=== PATIENT | male | born 1950 ===

== ENCOUNTER → 2018-07-22 14:03 | Outpatient (BNVA) | payer MEDICARE, BC, SELFPAY | PROVIDERS: PCP Nurse Practitioner Family; Visit Provider Urology | DX: N40.1 Benign prostatic hyperplasia with lower urinary tract symptoms (principal); R39.198 Other difficulties with micturition; K40.20 Bilateral inguinal hernia, without obstruction or gangrene, not specified as recurrent; N18.6 End stage renal disease; Z12.5 Encounter for screening for malignant neoplasm of prostate | CPT/HCPCS: 99213 ==

== ENCOUNTER 2018-07-24 11:13 | Outpatient (CLI) | payer MEDICARE, BC, SELFPAY ==
[2018-07-25 10:24] LABS: PSA, Screening 1.2 ng/ml (0-4.5)
== END 2018-07-24 11:33 ==
PROVIDERS: PCP Nurse Practitioner Family; Visit Provider Urology
DX: N40.1 Benign prostatic hyperplasia with lower urinary tract symptoms (principal); Z12.5 Encounter for screening for malignant neoplasm of prostate; E03.9 Hypothyroidism, unspecified; E78.5 Hyperlipidemia, unspecified
CPT/HCPCS: 36415; 84153

== ENCOUNTER → 2018-08-11 09:22 | Outpatient (BNVA) | payer MEDICARE, BC, SELFPAY | PROVIDERS: PCP Nurse Practitioner Family; Referring Provider Nurse Practitioner Family; Visit Provider Surgery | DX: Z12.11 Encounter for screening for malignant neoplasm of colon (principal); K40.20 Bilateral inguinal hernia, without obstruction or gangrene, not specified as recurrent; I10 Essential (primary) hypertension | CPT/HCPCS: 99203; 99214 ==

== ENCOUNTER 2018-08-26 10:07 | Day surgery (SDC) | payer MEDICARE, BC, SELFPAY ==
[2018-08-26 10:17] VITALS: BP 115/72; PULSE 66; RESP 16; TEMP 36.9; O2SAT 95
[2018-08-26] MEDS: Lactated Ringers 1,000 ML 30 ML IV (10:59)
--- NOTE | 2018-08-26 13:13 | W.PM.DSUDISC ---
Discharge Plan Disposition Patient Disposition: HOME Condition: Good Discharge Details Reason For Visit: colorectal cancer screening Attending Provider: Kenney Powell Primary Care Provider: Micheline Degroot Home Meds and New Rx's Prescriptions: Continue levothyroxine 25 MCG tablet 25 mcg PO DAILY Qty: 90 RF: 3 amlodipine 5 mg tablet 5 mg PO DAILY Qty: 90 RF: 3 alfuzosin 10 mg tablet extended release 24 hr 10 mg PO DAILY Qty: 60 RF: 0 acyclovir 400 mg tablet 400 mg PO DAILY Qty: 90 RF: 3 Discharge Instructions Instructions: Colonoscopy (DC) Activity:: Activity as Tolerated Diet:: As Tolerated Discharge Orders Discharge Orders: Discharge Order (Routine); Ordered 08/26/18 Ordered By: Kenney Powell DS: Diagnosis Discharge Diagnosis (1) Encounter for colorectal cancer screening: Start date: 08/26/18 Start time: 13:14 Status: Acute Asessment and Plan: Colonoscopy performed
--- NOTE | 2018-08-26 13:17 | W.COLOREPORT ---
Date of service: 08/26/18 Time of Service: 13:17 Colonoscopy Report Date of procedure: 08/26/18 Pre-op diagnosis general: Colorectal cancer screening Post-op diagnosis procedure note: other (Rectal Polyp) Procedure: Colonoscopy with biopsy by cold forceps Surgeon: Kenney Powell Anesthesia proc note operative: MAC (Logan Ashton CRNA; ASA 2 Mallampati Class II) Estimated blood loss (mL): 1 Pathology: other (Rectal Polyp) Complications: None Disposition: same day Indications: 67-year-old gentleman who presented with complaints of inguinal hernia bilaterally. It is also been 10 years since his last screening colonoscopy for colorectal cancer. His last colonoscopy was unremarkable. He has been asymptomatic since then. And has no family history of colorectal cancer Prep: Miralax/Dulcolax (Prep quality good) Findings: In examining the colon from cecum to anus, one small less than 1 cm in greatest diameter polyp was identified in the rectum and removed by cold biopsy forceps. No other abnormalities were noted of the colon, anus, or anorectal junction. Procedure Description: The patient was seen in the day surgery waiting area. His identification was confirmed, and procedure check. He was then brought to the procedure room. Monitoring for telemetry, blood pressure, oxygen saturation, and end tidal CO2 monitoring were applied. An appropriate time out was performed to confirm, identification, allergies, medication, procedure, was performed. Sedation was titrated for affect by the CONTAINER SHOP WELDER; Once adequate sedation was achieved, I performed a inspection of the external perineum, and a digitial rectal examination. No significant external abnormalities were noted. On digital rectal examination, there was no blood, no masses, good rectal tone, and a normal prostate. I advanced the colonoscope from the anus to the cecum under direct visualization. The cecum was identified by the ileal-cecal valve, and the appendiceal orifice. The scope was then withdrawn in circumferential manner from the cecum to the rectum. No abnormalites were noted in the colon. The scope was then withdrawn into the rectum, and a small less than 1 cm in greatest diameter polyp was identified, and subsequently removed by cold biopsy forceps. The scope was then retroflexed, and no abnormalities were noted of the rectum or anorectal junction. The scope was then withdrawn, terminating the procedure. There were no complications during the procedure, and the patient tolerated the procedure well. He was returned to the day surgery recovery area in good condition. Plan: We will await biopsy results before making further recommendations.
--- NOTE | 2018-08-26 14:00 | BOWEL_PTH ---
PATIENT: Jeronimo Knight LOC: [facility] U#:[id number] AGE/SX: 67/M ROOM: RE08/26/[address]: Kenney Powell DO : 1950 BED: DIS: 08/26/2018 SPEC #: [id number] RECD: 08/26/18 17:39 STATUS: JERICA REQ #: [id number] CHAO: 08/26/18 14:[address]: Kenney Powell DEPT: Surgical Specimen RECD BY: Mey Soria ENTERED: 08/26/18 17:40 SP TYPE: Bowel OTHR DR: Micheline Degroot APRN Tissues: 1 - BIOPSY BOWEL Procedures: GROSS AND MICRO LEVEL 4 Comments: [id number]
[2018-08-26 14:50] VITALS: BP 113/71; PULSE 70; RESP 16; TEMP 36.4; O2SAT 99
== END 2018-08-26 15:21 | disposition home or self-care (01) ==
PROVIDERS: PCP Nurse Practitioner Family; Visit Provider Surgery
PROC: 0DJD8ZZ Inspection of Lower Intestinal Tract, Via Natural or Artificial Opening Endoscopic (ICD-10-PCS; CPT 45378; principal; 2018-08-26 12:15)
DX: Z12.11 Encounter for screening for malignant neoplasm of colon (principal); K62.1 Rectal polyp; I10 Essential (primary) hypertension
CPT/HCPCS: 45380; 88305; J2250; J3010

== ENCOUNTER 2018-10-17 08:07 | Day surgery (SDC) | payer MEDICARE, BC, SELFPAY ==
[2018-10-17] VITALS (8 sets, daily range): BP systolic 91–142; BP diastolic 62–92; PULSE 75–92; RESP 13–19; TEMP 36.2–36.9; O2SAT 91–100
[2018-10-17] MEDS: Lactated Ringers 1,000 ML 30 ML IV ×3 (08:47→13:13)
--- NOTE | 2018-10-17 10:22 | W.PM.HP.N ---
Date of service: 10/17/18 Time of Service: 10:23 Assessment and Plan (1) Bilateral inguinal hernia: Current visit: Yes Status: Acute Recommended extra peritoneal laparoscopic bilateral inguinal hernia repair. The procedure was reviewed with him, and the risks of the procedure were discussed. All his questions were answered to his satisfaction. Consent was obtained to proceed with extraperitoneal lap scopic bilateral inguinal hernia repair. History of Present Illness Chief Complaint: Bilateral Inguinal Hernia Narrative: 67-year-old gentleman who presented with complaints of inguinal hernia bilaterally. He has had these for a number of years, and recently these have started to become symptomatic, with groin discomfort after standing for long periods of time, or lifting, pulling, pushing heavy objects. It was recommended that he have these repaired, now that he was having symptoms. Review of Systems Review of Systems All systems reviewed & are unremarkable except as noted in HPI and below Constitutional Denies chills, Denies difficulty sleeping, Denies fatigue, Denies fever(s), Denies frequent falls, Denies headache(s), Denies malaise, Denies night sweats, Denies weakness and Denies weight loss Eyes Denies change in vision, Denies diplopia, Denies itchy eyes and Denies loss of vision ENT Denies headache(s), Denies neck pain and Denies odynophagia Cardiovascular Denies chest pain at rest, Denies chest pain with activity, Denies syncope, Denies irregular heart rhythm, Denies lightheadedness, Denies radiating jaw, neck or arm pain, Denies palpitations, Denies dyspnea and Denies orthopnea Respiratory Denies dyspnea Gastrointestinal Denies abdominal pain, Denies melena, Denies hematochezia, Denies change in bowel habits, Denies change in stool character, Denies constipation, Denies cramping, Denies early satiety, Denies heartburn, Denies diarrhea, Denies loose stools, Denies nausea, Denies odynophagia, Denies vomiting and Denies hematemesis Genitourinary Denies hematuria, Denies oliguria, Denies difficulty urinating, Denies nocturia, Denies urinary hesitancy, Denies urinary incontinence and Denies urinary urgency Musculoskeletal Denies back pain, Denies myalgias, Denies arthralgias, Denies joint swelling, Denies limited range of motion, Denies muscle weakness, Denies neck pain, Denies numbness, Denies stiffness and Denies tingling Integumentary/Breasts Denies bleeding lesions, Denies non-healing lesions, Denies rash, Denies skin swelling, Denies sores, Denies unusual bruising and Denies wounds Neurologic Denies syncope, Denies frequent falls, Denies headache(s), Denies loss of vision, Denies memory loss, Denies numbness, Denies tingling and Denies weakness Psychiatric Denies abnormal sleep pattern, Denies anxiety, Denies depression, Denies difficulty concentrating, Denies auditory hallucinations, Denies irritability, Denies anhedonia, Denies memory loss, Denies mood swings and Denies panic attacks Endocrine Denies fatigue and Denies palpitations Hematologic/Lymphatic Denies easy bleeding and Denies easy bruising Allergic/Immunologic Denies itchy eyes PFSH Medical History Cervical radiculopathy squamous cell carcinoma of the head and neck Hypothyroidism (Chronic) Hyperlipidemia (Chronic) Hearing loss (Chronic) HTN (hypertension) H/O colonoscopy (Resolved 08/26/18) Status post dissection of neck (Resolved) Colonoscopy - IV Sedation (06/01/08) Tonsillectomy Vasectomy Family History Mother Neoplasm Father Heart disease Sister Essential hypertension Social History Smoking/Tobacco Use Status: Former Tobacco Use alcohol intake: current substance use type: does not use Meds Home Medications Medication Instructions Recorded Confirmed Type levothyroxine 25 mcg PO DAILY #90 tab-cap 02/14/18 10/17/18 Rx amlodipine 5 mg tablet 5 mg PO DAILY #90 tab-cap 09/01/18 10/17/18 Rx acyclovir 400 mg PO DAILY PRN 10/14/18 10/17/18 History Allergies Allergy/AdvReac Type Severity Reaction Status Date / Time lisinopril AdvReac Severe Headache Verified 10/17/18 08:29 Exam Const General: cooperative, comfortable and well developed Nutritional Appearance: overweight Orientation: alert, awake and oriented x3 HENMT Head: normal to inspection, normocephalic and atraumatic Ears: hearing grossly normal bilaterally General nose exam: external nose normal Face and sinus: normal facial exam Mouth: oral mucosae normal Teeth and gingiva: dentition normal Eyes General: appearance normal, both eyes and all related structures Alignment and Position: alignment normal Periorbital: periorbital findings normal Eyelids: eyelids normal Conjunctivae: conjunctivae normal Sclera: sclerae normal Pupils: PERRL EOM: EOM intact bilaterally Neck Neck: normal visual inspection, full ROM, trachea midline and supple Lymphatic: no lymphadenopathy noted Chest Chest: normal inspection of the chest Resp Effort & Inspection: normal respiratory effort Auscultation: clear to auscultation bilaterally Cardio Jugular venous pressure: no JVD Rate: regular rate Rhythm: regular rhythm Heart Sounds: S1 normal and S2 normal Pulses: normal peripheral pulses GI Inspection: non-distended Palpation: soft, no guarding, hernia indirect inguinal bilaterally and nontender Rectal Exam: deferred General: No deferred Skin General skin exam: no rashes or lesions noted and turgor normal Hair: normal Neuro General: moves all extremities, no focal motor deficits and CN's II-XI intact bilaterally Cranial Nerves: CN's II-XI intact bilaterally and EOM intact bilaterally Cognition: normal cognition Speech: speech normal Extrem General: normal capillary refill and no clubbing, cyanosis or edema Psych Appearance: grossly normal Mental Status: mental status grossly normal Affect: normal affect Attitude: cooperative Thought Process: normal Thought Content: normal Insight: insight good Judgment: judgment good Results Last Vital Signs Temp 36.8 C 10/17/18 08:21 Pulse 75 10/17/18 08:21 Resp 18 10/17/18 08:21 BP 120/71 10/17/18 08:21 Pulse Ox 95 10/17/18 08:21
[2018-10-17] MEDS: Bupivacaine 0.25% Pres-Free 30 ML VIAL ×2 (11:20→12:03)
[2018-10-17] MEDS: Lidocaine 1% Pres-Free 5 ML VIAL (12:03)
[2018-10-17] MEDS: Normal Saline Flush 10 ML SYR IV (13:22)
[2018-10-17] MEDS: HYDROmorphone 2 MG/ML VIAL IVP ×2 (13:23→13:38)
--- NOTE | 2018-10-17 13:57 | PDOC.DSDIS_ITS ---
Discharge Plan Disposition Patient Disposition: HOME Condition: Good Discharge Details Reason For Visit: Bilateral inguinal hernias Attending Provider: Kenney Powell Primary Care Provider: Micheline Degroot Home Meds and New Rx's Prescriptions: New tramadol 50 mg Tablet 50 mg PO Q6H PRN PRNQty: 10 RF: 0 Continued levothyroxine 25 MCG tablet 25 mcg PO DAILY Qty: 90 RF: 3 amlodipine 5 mg tablet 5 mg PO DAILY Qty: 90 RF: 3 acyclovir 400 mg tablet 400 mg PO DAILY PRNRF: 0 Discharge Instructions Instructions: Laparoscopic Herniorrhaphy (DC) Additional Instructions: Dr. Kenney Powell Post-Operative Discharge Instructions 1. Because there will be medication in your system for the next 24 hours, you may feel a little sleepy. Your coordination will be affected. Therefore: * Do not drive or operate dangerous equipment for 24 hours. * Do not drink alcohol beverages for 24 hours (not even beer). * Plan to go home and rest for the day. Restrictions: * Do not lift, push, or drum puller 20lbs for 2 weeks. * No strenuous bending or twisting for 2weeks, if it hurts stop. * No baths, you can shower. Let warm soapy water run over wound, then pat wound dry. Activity: * The day of surgery spend most of the day resting in a comfortable bed or recliner. 2-3 times during the day get up and walk around the house. * The day after surgery, or after your discharge, walk at least 3 times a day and spend increasing amounts of time walking and sitting up. If you are tired rest, but keep moving as able. * Continue Incentive Spirometry at home if you were performing this therapy in the hospital. Diet: * Resume home diet as tolerated. * Start with a light diet, your appetite will improve with time. * Drink at least 4-6 glasses of water per day to keep hydrated. Wound Care: * Skin glue will stay in place until it wears off. * You may cover the wound with a dry sterile dressing to keep clothing from rubbing against the wound. Call for appointment . Continue all your regular medications unless directed otherwise. Call the office or the Hospital Audit Senior Associate , If you have: * Pain not controlled with pain medication. * Nausea and vomiting. * Temperature greater than 101 degrees Fahrenheit. * Drainage from your wound that soaks through your dressing. *No more than 4000 milligrams of Tylenol in 24 hours. Narcotic pain medication can be constipating, if you have not had a bowel movement within 3 days use a laxative, I recommend Milk of Magnesia (MOM) 1oz. every 6 hrs until you have a bowel movement. I understand the above instructions and have no questions. Signature of Patient or Responsible Adult Escort Date/Time Name of Responsible Adult Escort Signature of Nurse Date/Time Revised 02/26/11 Stand Alone Forms: Sherman Puri (DSU) Referrals: Ashley Whitman PA [PHYSICIANS LEASE EXAMINER] - 10/17/18 12:53 pm (Follow up after bilateral inguinal hernia repair laparoscopic) Activity:: see instructions Remove Dressings/Wound Care:: Do Not Remove Shower/Bathe:: 24 hours Diet:: As Tolerated Discharge Orders Discharge Orders: Discharge Order (Routine); Ordered 10/17/18 Ordered By: Kenney Powell Discharge Data Discharge Date/Time-TO BE ENTERED AT DEPARTURE: 10/17/18 15:17 Discharge Comment: DC'D HOME WITH VIA PRIVATE CAR STABLE. DS: Diagnosis Discharge Diagnosis (1) Bilateral inguinal hernia: Status: Acute Asessment and Plan: Total extraperitoneal Laparoscopic bilateral inguinal hernia repair: Operative Note DATE OF PROCEDURE: 10/17/18 PRE-OP DIAGNOSIS: Bilateral inguinal hernias POST-OP DIAGNOSIS: same PROCEDURE: Total extraperitoneal laparoscopic bilateral inguinal hernia repair SURGEON: Kenney Powell LEASE EXAMINER: Rick Brown ANESTHESIA: GETA (Lucy Hope CRNA; ASA 2 Mallampati class III), regional (1.3% Exparel for bilateral TAP blocks) and local (1% lidocaine with epinephrine and 0.25% Marcaine) ESTIMATED BLOOD LOSS: 5 PATHOLOGY: none sent COMPLICATIONS: None Patient was transported to: PACU Patient's condition: stable Implants: [employer] laparoscopic pro-direct mail manager right side lot number [id number] left side lot number [id number] Indications: 67-year-old gentleman who has had bilateral inguinal hernias for a number of years, which had until recently been asymptomatic. Over the last year he started to notice discomfort in his groins with standing for long periods of time, or or straining with heavy objects. He is also noted that the bulges of increased in size over time. It was recommended he undergo repair of his bilateral inguinal groin hernias, by laparoscopic repair. The procedure was reviewed with him, and the risks of the procedure were discussed. All his questions were answered to his satisfaction. Consent was obtained to proceed. Findings: In examining the posterior pubic space, the space of Retzius, bilateral direct inguinal hernias were reduced both were associated with a large cord lipomas which were reduced with a hernia sac. Mesh was subsequently placed. Space was then collapsed. Procedure Description: The patient was brought to the operating room. He was positioned supine, and all bony prominences were padded. He received Ancef 2 g preoperatively. An endotracheal tube was placed by anesthesia and sedation was titrated for effect. An appropriate timeout was taken reviewing the patient's identification, allergies, medications, procedure, and site. His arms were tucked at his sides. A White catheter was inserted after intubation, and sequential compression devices were applied prior to intubation. The abdomen was then prepped with ChloraPrep and block draped in standard sterile fashion for a laparoscopic total extraperitoneal inguinal hernia repair. I began by making a 2.5 cm linear transverse incision infraumbilically. Incision was carried down to the linea alba using sharp and blunt dissection. Once linea alba was identified, I made a linear transverse incision just lateral to the linea alba through the anterior rectus fascia to expose the underlying muscle. I then used an S retractor to sweep the muscle laterally exposing the posterior rectus sheath. Using my finger then a blunt dissector, I gently di lated the posterior tract down to the pubic symphysis. This was followed by dissection using a [employer] Spacemaker introducer dilator trocar. The introducer for the catheter was advanced to the pubic symphysis and slightly over it I then withdrew through the introducer, slid the dilator portion further into the tract, then under direct visualization the dilator balloon was insufflated until I could clearly see the pubic symphysis and Subhash's ligament exposed. The the dilator balloon was then removed, and the extraperitoneal space of Retzius was insufflated with CO2. The Spacemaker trocar balloon was then insufflated. I then placed two 5 mm trochars under direct visualization in the midline. The first was placed 2 cm superior to the pubic symphysis, and the second was placed between the 5 mm trocar in the Spacemaker trocar. I then proceeded by completing dissection of the Subhash's ligament on the left and right side from the midline. I then turned my attention to developing the potential space on the right. I dissected out the right potential space from the inferior epigastrics to the right anterior superior iliac spine. The vas deferens was then identified, and the cord structures associated were then dissected free circumferentially. There was clearly a indirect hernia sac which was subsequently reduced along with a large cord lipoma that was associated with the sac. There is no evidence of a femoral hernia on the right side. I then repeated my dissection on the left side from the left inferior epigastric vessels to the left anterior superior iliac spine was bluntly dissected to expose the cord structures. The left vas deferens was identified. Subsequently the vas deferens and associated cord structures were circumferentially dissected. Again there was a indirect hernia sac present on the left side which was subsequently reduced with a cord lipoma. I Proceeded to place a [employer] pro-direct mail manager laparoscopic mesh with the blue Line centered medially. The mesh was rolled and introduced through the Spacemaker trocar into the space of Retzius. The medial portion of the mesh was aligned at the center of the pubic symphysis or just lateral to the right of the center, the remainder of the mesh was stretched out to the anterior superior iliac spine. The mesh was then unrolled intra-abdominally from a superior to inferior to overlie the direct, indirect and femoral potential space spaces. It was pressed into place with good apposition to the tissue. I then repeated this procedure on the left. A [employer] pro-direct mail manager laparoscopic mesh was selected it was rolled up the blue line centered medially, and introduced in the abdomen through the Spacemaker trocar. The medial portion of the mesh was aligned just left of center at the pubic symphysis with the remainder of the mesh stretch to trail off towards the anterior superior iliac spine on the left. The mesh was then unrolled from inferior to superior to be sure to cover the direct femoral and indirect hernia spaces the mesh was then pressed into place with good apposition. I injected 30 cc of 0.25% Marcaine through the 5 mm trocar into the potential space. The abdomen was desufflated, and the 5 trochars removed under direct visualization I did hold the mesh inferior portion in place as the space closed down the Spacemaker trocar was removed. The anterior rectus fascia was closed using 0 Vicryl suture in a [id number] fashion. The umbilical incision was closed in layers with 3-0 Vicryl sutures approximating the subcutaneous tissue and 4-0 Vicryl closing the skin in subcuticular fashion. The remainder the trocar incisions were closed with the 4-0 Vicryl in subcuticular fashion. Skin affix and dry sterile dressings were applied. There were no complications during the case patient tolerated the procedure very well. He was extubated in the operating room, and brought to the postanesthesia care unit in good condition. All counts were reported as correct x2.
--- NOTE | 2018-10-17 15:26 | W.PM.OP ---
Date of service: 10/17/18 Time of Service: 11:00 Operative Note DATE OF PROCEDURE: 10/17/18 PRE-OP DIAGNOSIS: Bilateral inguinal hernias POST-OP DIAGNOSIS: same PROCEDURE: Total extraperitoneal laparoscopic bilateral inguinal hernia repair SURGEON: Kenney Powell CONSERVATOR ARTIFACTS: Rick Brown ANESTHESIA: GETA (Lucy Hope CRNA; ASA 2 Mallampati class III), regional (1.3% Exparel for bilateral TAP blocks) and local (1% lidocaine with epinephrine and 0.25% Marcaine) ESTIMATED BLOOD LOSS: 5 PATHOLOGY: none sent COMPLICATIONS: None Patient was transported to: PACU Patient's condition: stable Implants: Covidien laparoscopic pro-venereal disease control head right side lot number [id number] left side lot number [id number] Indications: 67-year-old gentleman who has had bilateral inguinal hernias for a number of years, which had until recently been asymptomatic. Over the last year he started to notice discomfort in his groins with standing for long periods of time, or or straining with heavy objects. He is also noted that the bulges of increased in size over time. It was recommended he undergo repair of his bilateral inguinal groin hernias, by laparoscopic repair. The procedure was reviewed with him, and the risks of the procedure were discussed. All his questions were answered to his satisfaction. Consent was obtained to proceed. Findings: In examining the posterior pubic space, the space of Retzius, bilateral direct inguinal hernias were reduced both were associated with a large cord lipomas which were reduced with a hernia sac. Mesh was subsequently placed. Space was then collapsed. Procedure Description: The patient was brought to the operating room. He was positioned supine, and all bony prominences were padded. He received Ancef 2 g preoperatively. An endotracheal tube was placed by anesthesia and sedation was titrated for effect. An appropriate timeout was taken reviewing the patient's identification, allergies, medications, procedure, and site. His arms were tucked at his sides. A White catheter was inserted after intubation, and sequential compression devices were applied prior to intubation. The abdomen was then prepped with ChloraPrep and block draped in standard sterile fashion for a laparoscopic total extraperitoneal inguinal hernia repair. I began by making a 2.5 cm linear transverse incision infraumbilically. Incision was carried down to the linea alba using sharp and blunt dissection. Once linea alba was identified, I made a linear transverse incision just lateral to the linea alba through the anterior rectus fascia to expose the underlying muscle. I then used an S retractor to sweep the muscle laterally exposing the posterior rectus sheath. Using my finger then a blunt dissector, I gently dilated the posterior tract down to the pubic symphysis. This was followed by dissection using a [employer] Spacemaker introducer dilator trocar. The introducer for the catheter was advanced to the pubic symphysis and slightly over it I then withdrew through the introducer, slid the dilator portion further into the tract, then under direct visualization the dilator balloon was insufflated until I could clearly see the pubic symphysis and Subhash's ligament exposed. The the dilator balloon was then removed, and the extraperitoneal space of Retzius was insufflated with CO2. The Spacemaker trocar balloon was then insufflated. I then placed two 5 mm trochars under direct visualization in the midline. The first was placed 2 cm superior to the pubic symphysis, and the second was placed between the 5 mm trocar in the Spacemaker trocar. I then proceeded by completing dissection of the Subhash's ligament on the left and right side from the midline. I then turned my attention to developing the potential space on the right. I dissected out the right potential space from the inferior epigastrics to the right anterior superior iliac spine. The vas deferens was then identified, and the cord structures associated were then dissected free circumferentially. There was clearly a indirect hernia sac which was subsequently reduced along with a large cord lipoma that was associated with the sac. There is no evidence of a femoral hernia on the right side. I then repeated my dissection on the left side from the left inferior epigastric vessels to the left anterior superior iliac spine was bluntly dissected to expose the cord structures. The left vas deferens was identified. Subsequently the vas deferens and associated cord structures were circumferentially dissected. Again there was a indirect hernia sac present on the left side which was subsequently reduced with a cord lipoma. I Proceeded to place a Covidien pro-venereal disease control head laparoscopic mesh with the blue Line centered medially. The mesh was rolled and introduced through the Spacemaker trocar into the space of Retzius. The medial portion of the mesh was aligned at the center of the pubic symphysis or just lateral to the right of the center, the remainder of the mesh was stretched out to the anterior superior iliac spine. The mesh was then unrolled intra-abdominally from a superior to inferior to overlie the direct, indirect and femoral potential space spaces. It was pressed into place with good apposition to the tissue. I then repeated this procedure on the left. A Covidien pro-venereal disease control head laparoscopic mesh was selected it was rolled up the blue line centered medially, and introduced in the abdomen through the Spacemaker trocar. The medial portion of the mesh was aligned just left of center at the pubic symphysis with the remainder of the mesh stretch to trail off towards the anterior superior iliac spine on the left. The mesh was then unrolled from inferior to superior to be sure to cover the direct femoral and indirect hernia spaces the mesh was then pressed into place with good apposition. I injected 30 cc of 0.25% Marcaine through the 5 mm trocar into the potential space. The abdomen was desufflated, and the 5 trochars removed under direct visualization I did hold the mesh inferior portion in place as the space closed down the Spacemaker trocar was removed. The anterior rectus fascia was closed using 0 Vicryl suture in a [id number] fashion. The umbilical incision was closed in layers with 3-0 Vicryl sutures approximating the subcutaneous tissue and 4-0 Vicryl closing the skin in subcuticular fashion. The remainder the trocar incisions were closed with the 4-0 Vicryl in subcuticular fashion. Skin affix and dry sterile dressings were applied. There were no complications during the case patient tolerated the procedure very well. He was extubated in the operating room, and brought to the postanesthesia care unit in good condition. All counts were reported as correct x2.
--- NOTE | 2018-10-17 15:34 | ROE_ITS ---
Date of service: 10/17/18 Time of Service: 11:00 Operative Note DATE OF PROCEDURE: 10/17/18 PRE-OP DIAGNOSIS: Bilateral inguinal hernias POST-OP DIAGNOSIS: same PROCEDURE: Total extraperitoneal laparoscopic bilateral inguinal hernia repair SURGEON: Kenney Powell MACHINE FARMWORKER: Rick Brown ANESTHESIA: GETA (Lucy Hope CRNA; ASA 2 Mallampati class III), regional (1.3% Exparel for bilateral TAP blocks) and local (1% lidocaine with epinephrine and 0.25% Marcaine) ESTIMATED BLOOD LOSS: 5 PATHOLOGY: none sent COMPLICATIONS: None Patient was transported to: PACU Patient's condition: stable Implants: Covidien laparoscopic pro-environmental services director right side lot number [id number] left side lot number [id number] Indications: 67-year-old gentleman who has had bilateral inguinal hernias for a number of years, which had until recently been asymptomatic. Over the last year he started to notice discomfort in his groins with standing for long periods of time, or or straining with heavy objects. He is also noted that the bulges of increased in size over time. It was recommended he undergo repair of his bilateral inguinal groin hernias, by laparoscopic repair. The procedure was reviewed with him, and the risks of the procedure were discussed. All his questions were answered to his satisfaction. Consent was obtained to proceed. Findings: In examining the posterior pubic space, the space of Retzius, bilateral direct inguinal hernias were reduced both were associated with a large cord lipomas which were reduced with a hernia sac. Mesh was subsequently placed. Space was then collapsed. Procedure Description: The patient was brought to the operating room. He was positioned supine, and all bony prominences were padded. He received Ancef 2 g preoperatively. An endotracheal tube was placed by anesthesia and sedation was titrated for effect. An appropriate timeout was taken reviewing the patient's identification, allergies, medications, procedure, and site. His arms were tucked at his sides. A White catheter was inserted after intubation, and sequential compression devices were applied prior to intubation. The abdomen was then prepped with ChloraPrep and block draped in standard sterile fashion for a laparoscopic total extraperitoneal inguinal hernia repair. I began by making a 2.5 cm linear transverse incision infraumbilically. Incision was carried down to the linea alba using sharp and blunt dissection. Once linea alba was identified, I made a linear transverse incision just lateral to the linea alba through the anterior rectus fascia to expose the underlying muscle. I then used an S retractor to sweep the muscle laterally exposing the posterior rectus sheath. Using my finger then a blunt dissector, I gently dilated the posterior tract down to the pubic symphysis. This was followed by dissection using a [employer] Spacemaker introducer dilator trocar. The introducer for the catheter was advanced to the pubic symphysis and slightly over it I then withdrew through the introducer, slid the dilator portion further into the tract, then under direct visualization the dilator balloon was insufflated until I could clearly see the pubic symphysis and Subhash's ligament exposed. The the dilator balloon was then removed, and the extraperitoneal space of Retzius was insufflated with CO2. The Spacemaker trocar balloon was then insufflated. I then placed two 5 mm trochars under direct visualization in the midline. The first was placed 2 cm superior to the pubic symphysis, and the second was placed between the 5 mm trocar in the Spacemaker trocar. I then proceeded by completing dissection of the Subhash's ligament on the left and right side from the midline. I then turned my attention to developing the potential space on the right. I dissected out the right potential space from the inferior epigastrics to the right anterior superior iliac spine. The vas deferens was then identified, and the cord structures associated were then dissected free circumferentially. There was clearly a indirect hernia sac which was subsequently reduced along with a large cord lipoma that was associated with the sac. There is no evidence of a femoral hernia on the right side. I then repeated my dissection on the left side from the left inferior epigastric vessels to the left anterior superior iliac spine was bluntly dissected to expose the cord structures. The left vas deferens was identified. Subsequently the vas deferens and associated cord structures were circumferentially dissected. Again there was a indirect hernia sac present on the left side which was subsequently reduced with a cord lipoma. I Proceeded to place a Covidien pro-environmental services director laparoscopic mesh with the blue Line centered medially. The mesh was rolled and introduced through the Spacemaker trocar into the space of Retzius. The medial portion of the mesh was aligned at the center of the pubic symphysis or just lateral to the right of the center, the remainder of the mesh was stretched out to the anterior superior iliac s pine. The mesh was then unrolled intra-abdominally from a superior to inferior to overlie the direct, indirect and femoral potential space spaces. It was pressed into place with good apposition to the tissue. I then repeated this procedure on the left. A [employer] pro-environmental services director laparoscopic mesh was selected it was rolled up the blue line centered medially, and introduced in the abdomen through the Spacemaker trocar. The medial portion of the mesh was aligned just left of center at the pubic symphysis with the remainder of the mesh stretch to trail off towards the anterior superior iliac spine on the left. The mesh was then unrolled from inferior to superior to be sure to cover the direct femoral and indirect hernia spaces the mesh was then pressed into place with good apposition. I injected 30 cc of 0.25% Marcaine through the 5 mm trocar into the potential space. The abdomen was desufflated, and the 5 trochars removed under direct visualization I did hold the mesh inferior portion in place as the space closed down the Spacemaker trocar was removed. The anterior rectus fascia was closed using 0 Vicryl suture in a [id number] fashion. The umbilical incision was closed in layers with 3-0 Vicryl sutures approximating the subcutaneous tissue and 4-0 Vicryl closing the skin in subcuticular fashion. The remainder the trocar incisions were closed with the 4-0 Vicryl in subcut icular fashion. Skin affix and dry sterile dressings were applied. There were no complications during the case patient tolerated the procedure very well. He was extubated in the operating room, and brought to the postanesthesia care unit in good condition. All counts were reported as correct x2.
== END 2018-10-17 15:17 | disposition home or self-care (01) ==
PROVIDERS: PCP Nurse Practitioner Family; Visit Provider Surgery
PROC: (CPT 49650; principal; 2018-10-17 10:00)
DX: K40.20 Bilateral inguinal hernia, without obstruction or gangrene, not specified as recurrent (principal); D17.6 Benign lipomatous neoplasm of spermatic cord; I10 Essential (primary) hypertension
CPT/HCPCS: 49505; 76942; NC; C1781; J0131; J0360; J0690; J1100; J2405

== ENCOUNTER → 2018-10-20 09:04 | Outpatient (BNVA) | payer MEDICARE, BC, SELFPAY | PROVIDERS: PCP Nurse Practitioner Family; Visit Provider Urology | DX: N40.1 Benign prostatic hyperplasia with lower urinary tract symptoms (principal); N13.8 Other obstructive and reflux uropathy; I10 Essential (primary) hypertension | CPT/HCPCS: 99213 ==

== ENCOUNTER 2018-10-23 08:04 | Outpatient (CLI) | payer MEDICARE, BC, SELFPAY ==
[2018-10-23 08:27] LABS: Absolute Basophil Count 0.01 k/cumm (0.0-0.2); Absolute Eosinophil Count 0.12 k/cumm (0.0-0.7); Absolute Monocyte Count 0.49 k/cumm (0.11-0.7); Absolute Neutrophil Count 2.67 k/cumm (1.2-6.7); Basophils % 0.2; Eosinophils % 2.9; HCT 38.9 % (40.0-50.0); HGB 13.4 g/dL (13.5-17.5); Lymphocytes % 21.5; Mean Corp. HGB Concentration 34.4 g/dL (32.0-36.0); Mean Corpuscular Hemoglobin 32.4 pg (27.0-33.0); Mean Corpuscular Volume 94.2 fL (80-95); Mean Platelet Volume 9.4 fL (8.0-11.0); Monocytes % 11.7; Neutrophils % 63.7; Platelet Count 198 x1000/uL (130-400); RBC 4.13 m/cumm (4.50-6.00); White Blood Cell Count 4.19 k/cumm (4.4-10.8)
[2018-10-23 14:58] LABS: ALT 36 U/L (12-78); AST 17 U/L (15-37); Albumin 3.7 g/dL (3.4-5.0); Alkaline Phosphatase 77 U/L (46-116); Anion Gap 9.7 mmol/L (3-11); BUN 15 mg/dL (7-18); Bilirubin, Total 0.7 mg/dL (0.2-1.0); CO2 28.3 mmol/L (21.0-32.0); CREATININE 1.13 mg/dL (0.70-1.30); Calcium 9.2 mg/dL (8.5-10.1); Chloride 101 mmol/L (98-107); Cholesterol 197 mg/dL (50-200); Glucose 106 mg/dL (70-100); HDL Cholesterol 71 mg/dL (40-60); LDL CHOLESTEROL 109 mg/dL (<100); Potassium 4.4 mmol/L (3.5-5.1); Sodium 139 mmol/L (136-145); TSH (W/Ref FT4) 3.74 uIU/mL (0.358-3.74); Total Protein 6.7 g/dL (6.4-8.2); Triglyceride 51 mg/dL (30-150)
== END 2018-10-23 08:24 ==
PROVIDERS: PCP Nurse Practitioner Family; Visit Provider Nurse Practitioner Family
DX: E03.9 Hypothyroidism, unspecified (principal); E78.5 Hyperlipidemia, unspecified; I10 Essential (primary) hypertension; Z51.81 Encounter for therapeutic drug level monitoring
CPT/HCPCS: 36415; 80053; 80061; 83721; 84443; 85025

== ENCOUNTER → 2018-10-27 11:03 | Outpatient (BNVA) | payer MEDICARE, BC, SELFPAY | PROVIDERS: PCP Nurse Practitioner Family; Referring Provider Nurse Practitioner Family; Visit Provider Surgery | DX: R19.03 Right lower quadrant abdominal swelling, mass and lump (principal); I10 Essential (primary) hypertension; Z48.89 Encounter for other specified surgical aftercare ==

== ENCOUNTER → 2018-10-31 13:50 | Outpatient (BNVA) | payer MEDICARE, BC, SELFPAY | PROVIDERS: PCP Nurse Practitioner Family; Referring Provider Nurse Practitioner Family; Visit Provider Physical Therapy Assistant | DX: Z48.89 Encounter for other specified surgical aftercare (principal); K40.20 Bilateral inguinal hernia, without obstruction or gangrene, not specified as recurrent; I10 Essential (primary) hypertension ==

== ENCOUNTER 2019-04-22 07:05 | Outpatient (CLI) | payer MEDICARE, BC, SELFPAY ==
[2019-04-22 08:05] LABS: Hemoglobin A1C 5.4 % (4.5-6.2)
== END 2019-04-22 07:25 ==
PROVIDERS: PCP Nurse Practitioner Family; Visit Provider Nurse Practitioner Family
DX: R73.01 Impaired fasting glucose (principal)
CPT/HCPCS: 36415; 83036

== ENCOUNTER → 2019-09-22 09:47 | Outpatient (BNVA) | payer MEDICARE, BC, SELFPAY | PROVIDERS: PCP Nurse Practitioner Family; Referring Provider Nurse Practitioner Family; Visit Provider Urology | DX: N40.1 Benign prostatic hyperplasia with lower urinary tract symptoms (principal); R35.1 Nocturia; N13.8 Other obstructive and reflux uropathy | CPT/HCPCS: 99213 ==

== ENCOUNTER 2019-09-22 10:23 | Outpatient (CLI) | payer MEDICARE, BC, SELFPAY ==
[2019-09-23 15:16] LABS: PSA, Diagnostic 1.4 ng/mL (0.0-4.5)
== END 2019-09-22 10:43 ==
PROVIDERS: PCP Nurse Practitioner Family; Visit Provider Urology
DX: N40.1 Benign prostatic hyperplasia with lower urinary tract symptoms (principal); N13.8 Other obstructive and reflux uropathy
CPT/HCPCS: 36415; 99213; 84153

== ENCOUNTER 2020-04-27 02:35 | Outpatient (CLI) | payer MEDICARE, BC, SELFPAY ==
[2020-04-27 07:43] LABS: Abs Immature Grans 0.01 k/cumm (0.0-0.09); Absolute Basophil Count 0.01 k/cumm (0.0-0.2); Absolute Eosinophil Count 0.03 k/cumm (0.0-0.7); Absolute Lymphocyte Count 0.88 k/cumm (1.2-3.4); Absolute Neutrophil Count 2.26 k/cumm (1.2-6.7); Basophils % 0.3; Eosinophils % 0.8; HCT 39.9 % (40.0-50.0); HGB 13.9 g/dL (13.5-17.5); Immature Grans % 0.3 %; Lymphocytes % 23.8; Mean Corp. HGB Concentration 34.8 g/dL (32.0-36.0); Mean Corpuscular Hemoglobin 32.9 pg (27.0-33.0); Mean Corpuscular Volume 94.5 fL (80-95); Mean Platelet Volume 9.9 fL (8.0-11.0); Monocytes % 13.6; Neutrophils % 61.2; Platelet Count 196 x1000/uL (130-400); RBC 4.22 m/cumm (4.50-6.00); RBC Distribution Width 12.2 % (11.8-14.1); White Blood Cell Count 3.69 k/cumm (4.4-10.8)
[2020-04-27 09:00] LABS: ALT 22 U/L (16-63); AST 17 U/L (15-37); Albumin 3.8 g/dL (3.4-5.0); Alkaline Phosphatase 65 U/L (46-116); BUN 14 mg/dL (7-18); Bilirubin, Total 0.8 mg/dL (0.2-1.0); CREATININE 1.22 mg/dL (0.70-1.30); Calcium 8.9 mg/dL (8.5-10.1); Calculated LDL 115 mg/dL (<100); Chloride 103 mmol/L (98-107); Cholesterol 214 mg/dL (<200); Estimated GFR 58.73 (mL/min/1.73m2); Glucose 110 mg/dL (74-106); HDL Cholesterol 90 mg/dL (40-60); Potassium 4.4 mmol/L (3.5-5.1); Sodium 139 mmol/L (136-145); TSH (W/Ref FT4) 5.26 uIU/mL (0.36-3.74); Total Protein 6.7 g/dL (6.4-8.2); Triglyceride 47 mg/dL (<150)
[2020-04-27 09:18] LABS: FREE T4 0.82 ng/dL (0.76-1.46)
== END 2020-04-27 02:55 ==
PROVIDERS: PCP Nurse Practitioner Family; Visit Provider Nurse Practitioner Family
DX: E03.9 Hypothyroidism, unspecified (principal); E78.5 Hyperlipidemia, unspecified; Z13.1 Encounter for screening for diabetes mellitus; Z51.81 Encounter for therapeutic drug level monitoring
CPT/HCPCS: 36415; 80053; 80061; 84439; 84443; 85025

== ENCOUNTER 2020-07-27 02:33 | Outpatient (CLI) | payer MEDICARE, BC, SELFPAY ==
[2020-07-27 08:12] LABS: Anion Gap 6.4 mmol/L (3-11); BUN 13 mg/dL (7-18); CO2 27.6 mmol/L (21.0-32.0); Calcium 8.9 mg/dL (8.5-10.1); Calculated LDL 104 mg/dL (<100); Chloride 101 mmol/L (98-107); Cholesterol 200 mg/dL (<200); Estimated GFR 59.86 (mL/min/1.73m2); Glucose 110 mg/dL (74-106); HDL Cholesterol 82 mg/dL (40-60); Potassium 4.4 mmol/L (3.5-5.1); Sodium 135 mmol/L (136-145); Triglyceride 74 mg/dL (<150)
== END 2020-07-27 02:53 ==
PROVIDERS: PCP Nurse Practitioner Family; Visit Provider Nurse Practitioner Family
DX: E78.5 Hyperlipidemia, unspecified (principal); N28.9 Disorder of kidney and ureter, unspecified
CPT/HCPCS: 36415; 80048; 80061

== ENCOUNTER → 2020-09-09 09:01 | Outpatient (BNVA) | payer MEDICARE, BC, SELFPAY | PROVIDERS: PCP Nurse Practitioner Family; Referring Provider Nurse Practitioner Family; Visit Provider Urology | DX: N40.1 Benign prostatic hyperplasia with lower urinary tract symptoms (principal); N13.8 Other obstructive and reflux uropathy; I10 Essential (primary) hypertension | CPT/HCPCS: 99213 ==

== ENCOUNTER 2020-10-26 02:36 | Outpatient (CLI) | payer MEDICARE, BC, SELFPAY ==
[2020-10-26 09:02] LABS: Abs Immature Grans 0.01 10^3/uL (0.0-0.06); Absolute Basophil Count 0.01 10^3/uL (0.0-0.2); Absolute Eosinophil Count 0.02 10^3/uL (0.0-0.7); Absolute Monocyte Count 0.44 10^3/uL (0.1-0.8); Absolute Neutrophil Count 2.26 10^3/uL (1.2-6.7); Basophils % 0.3; Eosinophils % 0.6; HCT 39.9 % (40.0-50.0); HGB 13.9 g/dL (13.5-17.5); Immature Grans % 0.3; MCH 32.7 pg (27.0-33.0); MCHC 34.8 % (32.0-36.0); MCV 93.9 fL (80-95); MPV 10.5 fL (8.0-11.0); Monocytes % 13.2; Neutrophils % 67.6; Nucleated RBC 0 %; Platelet Count 146 10^3/uL (130-400); RBC 4.25 10^6/uL (4.36-5.78); RDW-SD 41.6 fL; WBC 3.34 10^3/uL (4.4-10.8)
[2020-10-26 09:28] LABS: C-Reactive Protein 0.23 mg/dL (0.0-0.3)
== END 2020-10-26 02:56 ==
PROVIDERS: PCP Nurse Practitioner Family; Visit Provider Family Medicine
DX: R59.0 Localized enlarged lymph nodes (principal)
CPT/HCPCS: 36415; 85025; 86140

== ENCOUNTER 2020-10-27 00:14 | Outpatient (CLI) | payer MEDICARE, BC, SELFPAY ==
--- OUTSIDE RECORDS SUMMARY | 2020-10-27 00:17 | XMS_ITS ---
:1950 Author Care Team Providers Name Role Phone [phone] Primary Care Provider Unavailable Allergies Code Code System Name Reaction Severity Status Onset 48101 RxNorm Lisinopril Headache ? Active ? Notes: Pt stated Medications Name Status Start Date Stop Date ? ? acyclovir Active ? Not available amlodipine Active ? Not available 5 mg L-Thyroxine Active ? Not available Notes: Pt stated urinary medicat ion for bladder Problems Name Status Onset Date Source ? Hypothyroidism Active 09/17/2020 ? Hypertensive Disorder Active 09/17/2020 ? Notes: Pt stated Procedures Date Name Performed by ? ? Resection of Femoral Head and Neck of Fe mur Information not available Notes: Pt stated Results Lab Results Date Name Specimen Result Interpretation Description Value Range Status Address ? 09/17/2020 COVID-19 RNA Nasopharyngeal Normal Sars not not [facility] (SARS-CoV-2), Cov 2 detected detected Diagnostics- QL, canoe inspector-PCR, RNA [facility] Respiratory Lab: [address], [facility] h ? Rapid SARS CoV ? Rapi negative ? ? In-Office 2 Ag, QL IA, d Orde r: Respiratory SARS Inter nal Use Specimen CoV 2 Only DO Not Ag, Attach QL Compendium DO IA, Not Attach Respi Compendium , rator Do Not y Delete/kristine ge Speci men Past Encounters 09/17/2020 Exposure to SARS-CoV-2; Exposure to Comm unicable Disease Kristine Carbajal, ERP PROJECT MANAGER: [address] [place] [phone], Ph. Social History Tobacco Smoking Status Former Smoker Vaccine List Notes: Pt stated utd Plan of Care Patient Instructions -Given your recent Close Contact with [place] VID, you may test positive for COVID 2- 14 days from the day of your exposure. Thus, quarantine for 14 days. If you develop symptoms during this quarantine period, then consider being evaluated. Reminders Provider Appointments None recorded. ? ? Lab None recorded. ? ? Referral None recorded. ? ? Procedures None recorded. ? ? Surgeries None recorded. ? ? Imaging None recorded. ? ? Vitals Height Weight BMI Blood Pressure 5 ft 9 in 167 lbs 24.7 kg/m2 132/80 mm[Hg]
--- OUTSIDE RECORDS SUMMARY | 2020-10-27 00:17 | XMS_ITS | Encounter Summary ---
:1950 Author Reason for Visit COVID19 Exposure; New Patient Assessment and Plan 1. Exposure to SARS-CoV-2 ? COVID-19 RNA (SARS-CoV-2), QL, endocrinology specialist-PCR, respiratory specimen ? rapid SARS CoV 2 Ag, QL IA , respiratory specimen 2. Exposure to communicable dise ase Discussion Note Your visit to urgent care is a mean s to address an acute issue. The care provided addresses the issue at hand, but does not represent an exhaustive evaluation of the issue. Urgent care is a health care resource but is not meant to be a substi tute to the relationship between your Primary Care Provider and yourself. If your symptoms persist after the treat ment recommended, then please see your Primary Care Provider for a more thorough evaluation of the issue. A visit to your emergency room is warranted if your health rapidly deteriorates. As discussed during your visit, please f ronnalow my recommendations for the diagnosis listed above. If you were prescribed prescription medications, then the medications listed above have already been sent electronically to the pharmacy of your choice. Unless advised, do not take any tgmq-phe-nfjupdt medications during the use of prescription medications. If you have any further concerns of questions, th en please don't hesitate to call us or t alk with your Primary Care Provider. All x-rays are read by a Radiologist negro romeo 24 hours of your visit to provide a specialist opinion on the x-rays you had done here today. We will call you if the radiologist?s reading differs significantly from that of your provider. If you had a Urine culture submitted and the results (usually available by the third day) reflect that the antibiotic you were given would not adequately treat the infection we will call you. You will a lso receive a call for any other labs th at may have been submitted once the results become available to us. Patient educational handouts: No information available. Plan of Care Patient Instructions -Given your recent Close Contact with CO VID, you may test positive for COVID 2- 14 days from the day of your exposure. Thus, quarantine for 14 days. If you develop symptoms during this quarantine period, then consider being evaluated. Reminders Provider Appointments None recorded. ? ? Lab COVID-19 RNA Ques t Diagnostics- (SARS-CoV-2), QL, 09/17/2020 [facility] endocrinology specialist-PCR, Respiratory Specimen ? Rapid SARS CoV In -Office Order 2 Ag, QL IA, Respiratory 09/17/2020 Specimen Referral None recorded. ? ? Procedures None recorded. ? ? Surgeries None recorded. ? ? Imaging None recorded. ? ? Medications Name Start Date ? ? acyclovir ? amlodipine ? 5 mg L-Thyroxine ? Notes: Pt stated urinary medicat ion for bladder Medications Administered None recorded. Vitals Height Weight BMI Blood Pressure 5 ft 9 in 167 lbs 24.7 kg/m2 132/80 mm[Hg] Results Lab Results Date Name Specimen Result Interpretation Description Value Range Status Address ? 09/17/2020 COVID-19 RNA Nasopharyngeal Normal Sars not not [facility] (SARS-CoV-2), Cov 2 detected detected Diagnostics- QL, endocrinology specialist-PCR, RNA [facility] Respiratory Lab: [address], [facility] ? Rapid SARS CoV ? Rapi negative ? ? In-Office 2 Ag, QL IA, d Orde r: Respiratory SARS Inter nal Use Specimen CoV 2 Only DO Not Ag, Attach QL Compendium DO [place], Not Attach Respi Compendium , rator Do Not y Delete/kristine ge Speci men Allergies Code Code System Name Reaction Severity Onset 73929 RxNorm Lisinopril Headache ? ? Notes: Pt stated Problems Name Status Onset Date Source ? Hypothyroidism Active 09/17/2020 ? Hypertensive Disorder Active 09/17/2020 ? Notes: Pt stated Procedures Date Name Performed by ? ? Resection of Femoral Head and Neck of Fe mur Information not available Notes: Pt stated Vaccine List Notes: Pt stated utd Social History Tobacco Smoking Status Former Smoker Alcohol intake Moderate Notes: coup[le be ers a day Marital status Illicit drugs no Functional Status Unknown. Past Encounters 09/17/2020 Exposure to SARS-CoV-2; Exposure to Comm unicable Disease Kristine Carbajal, PLANT SAFETY LEADER: [address] [place] [phone], Ph. History of Present Illness ? COVID-19 Symptoms March 2020 Reported By: Patient Upper Respiratory Symptoms: COVID-19 Signs and Symptom s cough resolved, fever resolved, shortness of breat h resolved, chills resolved, repeated shaking with chills resolved, muscle pain resolved, headache resolved, sore throat resolved, loss of taste or smell resolved, vomiting or diarrhea resolved, fatigue resolved, anorexia resolved. Associated Symptoms: no sputum producti on, no wheezing, no runny nose, no vomiting, no diarrh ea, no body aches, no nausea, no change in mental status, no hypotension, no tachycardia Note: pt denies symptoms, pt had direct exposure on 09/10/2020 and 09/14/2020 pt denies any symptoms but did wake up this morning feeling a little off Review of Systems ? Comprehensive General Adult ROS Reported By: Patient Constitutional: Constitutional: no fever, no night sweats, no significant weight gain, no significant weight loss, no exercise intolerance Eyes: Eyes: no dry eyes, no vision change, no irritation ENMT: Ears: no difficulty hearing, no ear pain. Nose: no frequent nosebleeds, no nose problems , no sinus problems. Mouth/Throat: no bleeding gums, no snoring , no dry mouth, no mouth ulcers, (normal) hoarseness, (normal ) sore throat: triggered by swallowing, no teeth problem s, sore throat Cardiovascular: Cardiovascular: no chest zee n, no arm pain on exertion, no shortness of breath when wal radha, no shortness of breath when lying down, no palpitations, no known heart murmur Respiratory: Respiratory: no cough, no wh eezing, no shortness of breath, no coughing up blood, no sleep apnea Gastrointestinal: Gastrointestinal: no abdomin al pain, no vomiting, normal appetite, no diarrhea, not v omiting blood, no dyspepsia, no GERD, no nausea Genitourinary: Genitourinary: no incontinen ce, no difficulty urinating, no hematuria, no increased freq uency Musculoskeletal: Musculoskeletal: no muscle a ches, no muscle weakness, no arthralgias/joint pain, no b ack pain, no swelling in the extremities Integumentary: Skin: no abnormal mole, no j aundice, no rashes, no laceration Neurologic: Neurologic: no loss of consc iousness, no weakness, no numbness, no seizures, no di zziness, no migraines, no headaches, no tremor Psychiatric: Psych: no depression, no sle ep disturbances, feeling safe in a relationship, no alcohol abu se, no anxiety, no hallucinations, no suicidal thoughts Endocrine: Endocrine: no fatigue Hematologic/Lymphatic: Hematologic/Lymphatic no swo llen glands, no bruising, no excessive bleeding Allergic/Immunologic: Allergy/Immunologic: no runn y nose, no sinus pressure, no itching, no hives, no freque nt sneezing Notes: <p>[GETWELL IMPORTED TEXT]<b r>Do you have a fever?: NO
Do you have normal appetite?: Y ES
Do you have eye Irritation?: NO
Do you have eye pain?: NO
Do you have a sore throat?: YES
Do you have any ear p ain?: NO
Do you have a cough?: NO
Do you have trouble br eathing?: NO
Do you have chest discomfort?: NO
Do you lorenz ve nausea?: NO
Do you have abdominal pain?: NO
Do yo u have diarrhea?: NO
Do you have difficulty urinating?: NO
Do you have increased frequency of urination?: NO< br>Do you have blood in your urine?: NO
Do you have Mu scle aches?: NO
Do you have joint pain?: NO
Do you lorenz ve a rash or skin problem?: NO
Do you have nasal allison estion?: NO
Do you feel safe?: YES</p> Physical Exam None recorded.
--- NOTE | 2020-10-27 07:45 | DI.US_ITS ---
EXAM: US SOFT TISSUE HEAD OR NECK CLINICAL HISTORY: New L sided lymph node, history of neck cancer,CERVICAL LYMPHADENOPATHY,R59. TECHNIQUE: Ultrasound was performed using standard protocol. COMPARISON: No exams were available for comparison FINDINGS: Sonographic assessment utilizing grayscale and color Doppler imaging was performed and targeted to th e area of clinical concern. There is a 3.6 x 1.1 x 2.4 cm heterogeneous mass in the left submandibular region corresponds to the patient's palpable abnormality. Given the patient's history recurrent mass or adenopathy should be c onsidered. A CT scan of the neck with contrast is recommended for further evaluation. IMPRESSION: DATA REPOSITORY:
== END 2020-10-27 00:34 ==
PROVIDERS: PCP Nurse Practitioner Family; Visit Provider Family Medicine
DX: R59.0 Localized enlarged lymph nodes (principal); Z85.89 Personal history of malignant neoplasm of other organs and systems
CPT/HCPCS: 76536

== ENCOUNTER 2020-11-08 01:34 | Outpatient (CLI) | payer MEDICARE, BC, SELFPAY ==
--- NOTE | 2020-11-08 07:30 | DI.CT_ITS ---
EXAM: CT NECK W CLINICAL HISTORY: F/U ABNL US, ? NEW LT NODE,CA OF HEAD AND NECK,CERVICAL RADICULOPATHY. TECHNIQUE: Imaging Protocol: Axial computed tomography images with coronal and sagittal reformatted images were created and reviewed. CONTRAST MATERIAL: Intravenous: Omnipaque 350 Contrast volume:100 mL COMPARISON: No exams were available for comparison FINDINGS: Orbits and orbital soft tissues: Within normal limits. Visualized paranasal sinuses: There is mucosal thickening in several ethmoid air cells and the maxil janell sinuses bilaterally. Nasopharynx: Within normal limits. Oropharynx: Within normal limits. Hypopharynx: Within normal limits. Larynx: Within normal limits. Retropharyngeal space: Within normal limits. 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 The right parotid gland is decreased in size and is mostly fat density compared to the left parotid gland. These findings li jacobo reflect the patient's history of prior right neck dissection and radiation therapy. The left pa rotid gland is visualized and may account for the soft tissue mass on examination and ultrasound. No evidence of a and left neck mass is seen. Thyroid gland: Within normal limits. Lymphadenopathy: There is scattered lymph nodes seen along the level one to level three all measurin g less than 8 mm in short axis diameter which are physiologic in nature. Trachea: Within normal limits. Lung apices: Within normal limits. Bones: Degenerative changes in the spine. No suspicious lytic or sclerotic lesions. Carotids/Jugular: Within normal limits. Mild atherosclerosis. Soft tissues: The patient is status post right neck dissection. There is absence of the right subm andibular gland. The right parotid gland is decreased in size compared to the left parotid gland. IMPRESSION: 1. Status post right neck dissection. 2. No suspicious left neck mass or adenopathy. 3. The palpable abnormality in question may represent the left submandibular gland. RADIATION DOSE DELIVERED: 387.96mGy.cm Total DLP 387.96mGy.cm Total DLP DATA REPOSITORY: All CT scans at this facility are submitted to the National Radiology Data Registry (NRDR) Dose Index Registry (DIR) with the [employer] ([employer]). RADIATION OPTIMIZATION: All CT scans at this facility use at least one of these dose optimization te chniques: automated exposure control; mA and/or kV adjustment per patient size (includes targeted exa ms where dose is matched to clinical indication); or iterative reconstruction.
[2020-11-08] MEDS: Omnipaque 350 MG/ML 100 ML BTL IJ (10:41)
[2020-11-08 10:43] LABS: CREATININE 1.17 mg/dL (0.70-1.30)
== END 2020-11-08 01:54 ==
PROVIDERS: PCP Nurse Practitioner Family; Visit Provider Nurse Practitioner
DX: C76.0 Malignant neoplasm of head, face and neck (principal); M54.12 Radiculopathy, cervical region
CPT/HCPCS: 70491; 82565; J3490

== ENCOUNTER 2021-04-18 02:29 | Outpatient (CLI) | payer MEDICARE, BC, SELFPAY ==
[2021-04-18 08:39] LABS: Abs Immature Grans 0.01 10^3/uL (0.0-0.06); Absolute Basophil Count 0.02 10^3/uL (0.0-0.2); Absolute Eosinophil Count 0.02 10^3/uL (0.0-0.7); Absolute Lymphocyte Count 0.93 10^3/uL (1.2-3.4); Absolute Monocyte Count 0.43 10^3/uL (0.1-0.8); Basophils % 0.6; Eosinophils % 0.6; HCT 41.3 % (40.0-50.0); Immature Grans % 0.3; Lymphocytes % 27.3; MCH 32.5 pg (27.0-33.0); MCHC 33.9 % (32.0-36.0); MCV 95.8 fL (80-95); MPV 9.7 fL (8.0-11.0); Monocytes % 12.6; Neutrophils % 58.6; Nucleated RBC 0 %; Platelet Count 162 10^3/uL (130-400); RBC 4.31 10^6/uL (4.36-5.78); RDW 11.9 % (11.8-14.1); RDW-SD 42.5 fL; WBC 3.41 10^3/uL (4.4-10.8)
[2021-04-18 08:54] LABS: Hemoglobin A1C 5.3 % (<5.7)
[2021-04-18 09:58] LABS: ALT 23 U/L (16-63); AST 16 U/L (15-37); Albumin 4.1 g/dL (3.4-5.0); Alkaline Phosphatase 74 U/L (46-116); Anion Gap 7.1 mmol/L (3-11); BUN 12 mg/dL (7-18); Bilirubin, Total 0.9 mg/dL (0.2-1.0); CO2 29.9 mmol/L (21.0-32.0); CREATININE 1.2 mg/dL (0.70-1.30); Calcium 9.2 mg/dL (8.5-10.1); Chloride 103 mmol/L (98-107); Estimated GFR 59.68 (mL/min/1.73m2); Glucose 104 mg/dL (74-106); Potassium 4.3 mmol/L (3.5-5.1); Sodium 140 mmol/L (136-145); TSH (W/Ref FT4) 4.36 uIU/mL (0.36-3.74); Total Protein 7.1 g/dL (6.4-8.2)
[2021-04-18 10:16] LABS: FREE T4 0.84 ng/dL (0.76-1.46)
== END 2021-04-18 02:30 | disposition home or self-care (01) ==
LOC: LBO 02:30
PROVIDERS: PCP Nurse Practitioner Family; Visit Provider Nurse Practitioner Family
DX: I10 Essential (primary) hypertension (principal); E03.9 Hypothyroidism, unspecified; R73.01 Impaired fasting glucose; Z51.81 Encounter for therapeutic drug level monitoring
CPT/HCPCS: 36415; 80053; 83036; 84439; 84443; 85025

== ENCOUNTER → 2021-09-08 07:56 | Outpatient (BNVA) | payer MEDICARE, BC, SELFPAY | PROVIDERS: PCP Nurse Practitioner Family; Visit Provider Urology | DX: N40.1 Benign prostatic hyperplasia with lower urinary tract symptoms (principal); N13.8 Other obstructive and reflux uropathy; Z79.899 Other long term (current) drug therapy | CPT/HCPCS: 99213 ==

== ENCOUNTER → 2023-10-15 08:31 | Outpatient (BNVA) | payer MEDICARE, BC, SELFPAY | PROVIDERS: Visit Provider Urology | DX: N40.1 Benign prostatic hyperplasia with lower urinary tract symptoms (principal); N13.8 Other obstructive and reflux uropathy | CPT/HCPCS: 99214 ==

== ENCOUNTER → 2025-03-16 08:20 | Outpatient (BNVA) | payer MEDICARE, BC, SELFPAY | PROVIDERS: Visit Provider Urology | DX: N40.1 Benign prostatic hyperplasia with lower urinary tract symptoms (principal); N13.8 Other obstructive and reflux uropathy | CPT/HCPCS: 99213 ==